=== PATIENT | male | born 1990 | race Caucasian/White ===

== ENCOUNTER 2016-08-07 11:10 | Emergency (ER) | payer SELFPAY ==
--- NOTE | 2016-08-17 18:06 | ER ---
ADMIT: 08/07/2016 RM/LOC: ER [facility] MR#: [id number] [address] [id number] SHONA JURADO [address] [place] [address] Emergency Room Report SEX: M AGE: 26 : 1990 DATE: 08/07/2016 ADDENDUM: CHIEF COMPLAINT: Laceration. HISTORY OF PRESENT ILLNESS: This is a 26-year-old male who cut his 3rd, 4th, and 5th digits on sheet metal prior to arrival. They are all 3 on the palmar side. Laceration repair was done here in the emergency room, please see T- sheet for that information. PAST MEDICAL HISTORY: Appendectomy. MEDICATIONS: . ALLERGIES: TO LEVAQUIN. SOCIAL HISTORY: He denies any drug or alcohol use, but does smoke a pack of tobacco daily. FAMILY HISTORY: Noncontributory. REVIEW OF SYSTEMS: Please see T-sheet. PHYSICAL EXAM: Please see T-sheet. CLINICAL IMPRESSIONS: Laceration to the 3rd, 4th, and 5th fingers on the palmar side. BOYD Bourne / Kervin Fitch MD / sintia JOB #: [id number] CC: Kervin Fitch MD, Attending Physician Doroteo Wong MD, Family Physician
== END 2016-08-07 12:20 | disposition home or self-care (01) ==
LOC: ER 11:10
PROC: 0HQFXZZ Repair Right Hand Skin, External Approach (ICD-10-PCS; principal; 2016-08-07)
DX: S61.411A Laceration without foreign body of right hand, initial encounter (principal); Z88.8 Allergy status to other drugs, medicaments and biological substances; Z90.49 Acquired absence of other specified parts of digestive tract; W26.8XXA Contact with other sharp object(s), not elsewhere classified, initial encounter